=== PATIENT | male | born 1975 | race Hispanic/Latino ===

== ENCOUNTER → 2018-04-14 | Day surgery (SDC) | payer OTHER ==
[~2018-04-14] MED LIST: ATENOLOL50 MG PO; FENTANYL CITRATE/PF 100MCG/2 ML INJ ONE; GLUCAGON FOR INJ 1 MG VIAL ONE; HYOSCYAMINE SULFATE 0.5 MG/ML INJ ONE; MIDAZOLAM HCL 2 MG/2 ML VIAL ONE; PROPOFOL IV EMULSION 10 MG/ML 50 ML VIAL ONE; ZESTRIL40 MG PO
[2018-04-14 11:25] VITALS: BP 143/93
--- NOTE | 2018-04-14 13:21 | Operative Report ---
DATE OF PROCEDURE: April 14, 2018 REFERRING PHYSICIAN: Dr. Paul Hunt PROCEDURES PERFORMED 1. Esophagogastroduodenoscopy with biopsies. 2. Colonoscopy with polypectomy and biopsies. INDICATIONS FOR EGD: Acid reflux. INDICATIONS FOR COLONOSCOPY: History of rectal bleeding. MEDICATION: Patient was done under MAC. Please see anesthesiologist's note. PROCEDURE: With the patient in the left lateral decubitus position, the flexible fiberoptic Olympus gastroscope was introduced into the esophagus under direct visualization without any difficulty. There was some patchy erythema noted in the distal esophagus. The scope was then advanced with ease into the stomach. Mucosa overlying the antrum and the body revealed some patchy erythema and low-grade to moderate edema. Biopsies were obtained and sent to stain for H. pylori. Several hyperplastic-appearing polyps were noted in the body of the stomach, and some were partially excised with cold biopsy forceps. Pylorus appeared to be of normal contour and shape. It was intubated with ease, and the scope was advanced all the way to the 2nd portion of the duodenum. The scope was then withdrawn slowly. Mucosa overlying the proximal 2nd portion and the duodenal bulb appeared to be within normal limits. Biopsies were obtained to rule out sprue. The scope was then withdrawn back into the stomach and retroflexed. Mucosa overlying the fundus and the cardia appeared to be within normal limits. The scope was then straightened out. The scope was then slowly withdrawn. The mucosa at the GE junction appeared somewhat raised, and biopsies were obtained. The patient tolerated the procedure well. IMPRESSION 1. Distal esophagitis, mild. 2. Gastroesophageal junction mucosa somewhat raised, biopsies obtained. 3. Gastritis, biopsied. Biopsies sent to stain for H. pylori. 4. Gastric polyps, some partially excised with cold biopsy forceps. 5. Rule out sprue. PLAN: Follow up histology. Initiate Protonix 40 mg 1 p.o. q.a.m. a.c. The patient was then turned around. After adequate lubrication of the anal canal, a flexible fiberoptic Olympus colonoscope was inserted into the rectum with ease and advanced all the way to the cecum. One polyp was hot biopsied from the cecum. The scope was then withdrawn slowly, and 1 polyp was snared from the ascending colon. The transverse appeared to be within normal limits. A semi-circumferential mass was noted in the distal descending, and biopsies were obtained. An approximately 1-cm pedunculated polyp was noted in the proximal sigmoid colon, and that was removed per snare electrocautery and it was hemoclipped. The rest of the sigmoid and rectum appeared to be within normal limits. The scope was then retroflexed into the distal rectum, and moderate-size internal hemorrhoids were noted, none of which was actively bleeding. The scope was then straightened out. It was subsequently withdrawn. Patient tolerated the procedure well. IMPRESSIONS 1. Cecal polyp, hot biopsied. 2. Ascending colon polyp, snared. 3. Descending colon mass, semi-circumferential, biopsies obtained. The mass was also tattooed. 4. Sigmoid colon polyp, snared. Polypectomy site was hemoclipped. 5. Internal hemorrhoids, none actively bleeding. PLAN: Follow up histology. Patient will need a CT scan of the abdomen and pelvis. Also, a general surgical opinion is in order. Job#: [id number] cc:DO CHRISTAL JOSHI MD
== END | disposition home or self-care (01) ==
LOC: OR 06:49
PROVIDERS: ATTEND Internal Medicine Gastroenterology
DX: C18.6 Malignant neoplasm of descending colon (principal); D12.5 Benign neoplasm of sigmoid colon; D12.2 Benign neoplasm of ascending colon; K31.7 Polyp of stomach and duodenum; K29.70 Gastritis, unspecified, without bleeding; K20.9 Esophagitis, unspecified; K21.9 Gastro-esophageal reflux disease without esophagitis; K64.8 Other hemorrhoids; I10 Essential (primary) hypertension; Z01.810 Encounter for preprocedural cardiovascular examination
CPT/HCPCS: 43239; 45380; 45381; 45384; 45385; 93005; J1610; J1980; J2250; J2704; 45378

== ENCOUNTER → 2018-04-15 | Outpatient (CLI) | payer OTHER ==
[~2018-04-15] MED LIST changes: -FENTANYL CITRATE/PF 100MCG/2 ML INJ ONE; -GLUCAGON FOR INJ 1 MG VIAL ONE; -HYOSCYAMINE SULFATE 0.5 MG/ML INJ ONE; +IOPAMIDOL 370 MG/ML 200 ML INFUS..BTL INJ ONE; -MIDAZOLAM HCL 2 MG/2 ML VIAL ONE; -PROPOFOL IV EMULSION 10 MG/ML 50 ML VIAL ONE; +SODIUM CHLORIDE 0.9% 50ML 50 ML ONE
[2018-04-15 13:07] LABS: BLOOD UREA NITROGEN 11 mg/dL (7-26); BUN/CREATININE RATIO 9 (6-25); CREATININE, SERUM 1.26 mg/dL (0.72-1.25); EST GLOMERULAR FILTRATION RATE > 60 ML/MIN (60-)
--- NOTE | 2018-04-15 13:46 | Diagnostic Imaging Report ---
EXAMINATION: CT of the abdomen and pelvis with contrast. TECHNIQUE: Spiral CT images of the abdomen and pelvis were performed from the lung bases to the lesser trochanters after the intravenous administration of 100 cc Isovue-370 and the oral administration of water. Coronal and sagittal reformatted images were obtained. COMPARISON: None. CLINICAL HISTORY:: Colon mass, colon polyp DISCUSSION: ABDOMEN/PELVIS: LOWER THORAX:Juxtapleural opacities in the dependent lower lobes likely subsegmental atelectasis. HEPATOBILIARY: No focal hepatic lesions. No intra-or extrahepatic biliary ductal dilation. The gallbladder is normal. SPLEEN: No splenomegaly. PANCREAS: No focal masses or ductal dilatation. ADRENALS: No adrenal nodules. KIDNEYS/URETERS: No hydronephrosis, stones, or solid mass lesions. PELVIC ORGANS/BLADDER: Urinary bladder is incompletely distended but otherwise unremarkable. Coarse central prostatic calcifications. PERITONEUM/RETROPERITONEUM: No charles pneumoperitoneum or fluid. LYMPH NODES: No pelvic sidewall, retroperitoneal, or mesenteric lymphadenopathy. VESSELS: Abdominal aorta, major branch vessels, and iliac arterial systems are well-visualized and patent. Portal vein, splenic vein, and central superior mesenteric vein are patent. GI TRACT: The large bowel shows no evidence of distention or wall thickening. Metallic clips, presumably related to endoscopic polypectomy are identified at the proximal sigmoid colon. Additionally, there is a small focus of contained extraluminal air adjacent to the posterior margin of the proximal descending colon wall seen on series 2 image 36, likely attributable to endoscopic excision or biopsy. 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 No acute osseous abnormalities. No focal soft tissue abnormalities. IMPRESSION: Concentric wall thickening of the proximal descending colon with small focus of contained extraluminal air posteriorly, presumably a consequence of endoscopic polypectomy or biopsy. Correlation with endoscopic report is suggested. Additional endoscopic clips more distally at the junction of the descending and sigmoid colon. No mesenteric lymphadenopathy or CT evidence of metastatic disease. Findings were discussed by telephone with Ms. Schroeder, nurse for Dr. Bailey Levine, at 1:40 PM 04/15/2018. Signed by: Dr. Rito Manzanares M.D. on 04/15/2018 1:43 PM
== END ==
LOC: CT 12:15
PROVIDERS: ATTEND Internal Medicine Gastroenterology
DX: K63.9 Disease of intestine, unspecified (principal); K63.5 Polyp of colon; K64.8 Other hemorrhoids
CPT/HCPCS: 36415; 74177; 82565; 84520; Q9967

== ENCOUNTER 2018-05-05 07:36 | Inpatient (IN) | payer OTHER ==
--- NOTE | 2018-05-01 10:12 | Diagnostic Imaging Report ---
EXAMINATION: CHEST 2 VIEWS INDICATION: Pre-admit. COMPARISON: None FINDINGS: TUBES and LINES: None. LUNGS: Lungs are well inflated. Lungs are clear. There is no evidence of pneumonia or pulmonary edema. PLEURA: No pleural effusion or pneumothorax. HEART AND MEDIASTINUM: The cardiomediastinal silhouette is unremarkable. BONES AND SOFT TISSUES: No acute osseous lesion. Soft tissues are unremarkable. UPPER ABDOMEN: No free air under the diaphragm. IMPRESSION: No acute radiographic abnormality. Signed by: Dr. Benita Gibson MD on 05/01/2018 10:08 AM
[2018-05-02 10:25] LABS: BASOPHILS % 0.6 % (0.0-1.0); EOSINOPHILS # (AUTO) 0.2 (0.0-0.4); EOSINOPHILS % 3.3 % (0.0-6.0); HEMOGLOBIN 14.9 g/dL (14.0-18.0); LYMPHOCYTES # (AUTO) 1.9 (1.0-3.2); LYMPHOCYTES % 29.2 % (18.0-39.1); MEAN CORPUSCULAR HEMOGLOBIN 29.2 pg (28-32); MEAN CORPUSCULAR HGB CONC 33.1 g/dL (31-35); MEAN CORPUSCULAR VOLUME 88.2 fL (81-99); MONOCYTES # (AUTO) 0.4 (0.2-0.8); MONOCYTES % 5.7 % (4.4-11.3); NEUTROPHILS % 60.9 % (38.7-80.0); PLATELET COUNT 319 x10e3/uL (140-360); RED CELL DISTRIBUTION WIDTH 13.1 % (11.7-14.4)
[2018-05-02 10:40] LABS: BLOOD UREA NITROGEN 13 mg/dL (7-26); BUN/CREATININE RATIO 13 (6-25); CALCIUM 8.9 mg/dL (8.4-10.2); CARBON DIOXIDE 28 mmol/L (22-29); CHLORIDE 104 mmol/L (98-107); CREATININE, SERUM 1.03 mg/dL (0.72-1.25); EST GLOMERULAR FILTRATION RATE > 60 ML/MIN (60-); GLUCOSE 107 mg/dL (74-118); SODIUM 137 mmol/L (136-145)
[~2018-05-05] VITALS: Ht 177.8 cm; Wt 102.5 kg
[~2018-05-05 07:36] MED LIST changes: -IOPAMIDOL 370 MG/ML 200 ML INFUS..BTL INJ ONE; -SODIUM CHLORIDE 0.9% 50ML 50 ML ONE
--- OUTSIDE RECORDS SUMMARY | 2018-05-05 07:38 | XMS REPORT ---
Author [facility] Address Unknown Phone Unavailable Care Team Providers Care Freight Solicitor Name Role Phone Kelle JULIAN Unavailable Unavailable CINDY LEVINE Unavailable Unavailable Problems This patient has no known problems. Allergies, Adverse Reactions, Alerts This patient has no known allergies or adverse reactions. Medications This patient has no known medications. Results Test Description Test Time Test Comments Text Results Atomic Results Result Comments CHEST 2 VIEWS 2018-05-01 10:04:00 [place] [address] Patient Name: EDILSON URIAS MR #: [id number] : 1975 Age/Sex: 43/M Req #: [id number] Adm Physician: Ordered by: CHRISTAL JULIAN MD Report #: [id number] Location: OR Room/Bed: Procedure: [id number] DX/CHEST 2 VIEWS Exam Date: 05/01/18 Exam Time: 0925 REPORT STATUS: Signed EXAMINATION: CHEST 2 VIEWS INDICATION: Pre-admit. COMPARISON: None FINDINGS: TUBES and LINES: None. LUNGS: Lungs are well inflated. Lungs are clear. There is no evidence of pneumonia or pulmonary edema. PLEURA: No pleural effusion or pneumothorax. HEART AND MEDIASTINUM: The cardiomediastinal silhouette is unremarkable. BONES AND SOFT TISSUES: No acute osseous lesion. Soft tissues are unrem arkable. UPPER ABDOMEN: No free air under the diaphragm. IMPRESSION: No acute radiographic abnormality. Signed by: Dr. Zack Zurita MD on 05/01/2018 10:08 AM Dictated By: ZACK ZURITA MD 1008 Transcribed By: MILTON on 05/01/18 1008 COPY TO: CHRISTAL JULIAN MD CT ABDOMEN/PELVIS W 2018-04-15 13:24:00 [place] [address] Patient Name: EDILSON URIAS MR #: [id number] : 1975 Age/Sex: 43/M Req #: [id number] Adm Physician: Ordered by: CINDY LEVINE MD Report #: [id number] Location: CT Room/Bed: Procedure: [id number] CT/CT ABDOMEN/PELVIS W Exam Date: 04/15/18 Exam Time: 1230 REPORT STATUS: Signed EXAMINATION: CT of the abdomen and pelvis with contr ast. TECHNIQUE: Spiral CT images of the abdomen and pelvis were performed from the lung bases to the lesser trochanters after the intravenous administration of 100 cc Isovue-370 and the oral administration of water. Coronal and sagittal reformatted images were obtained. COMPARISON: None. CLINICAL HISTORY:: Colon mass, colon polyp DISCUSSION: ABDOMEN/PELVIS: LOWER THORAX:Juxtapleural opacities in the dependent lower lobes likely subsegmental atelectasis. HEPATOBILIARY: No focal hepatic lesions. No intra-or extrahepatic biliary ductal dilation. The gallbladder is normal. SPLEEN: No splenomegaly. PANCREAS: No focal masses or ductal dilatation. ADRENALS: No adrenal nodules. KIDNEYS/URETERS: No hydronephrosis, stones, or solid mass lesions. PELVIC ORGANS/BLADDER: Urinary bladder is incompletely distended but otherwise unremarkable. Coarse central prostatic calcifications. PERITONEUM/RETROPERITONEUM: No charles pneumoperitoneum or fluid. LYMPH NODES: No pelvic sidewall, retroperitoneal, or mesenteric lymphadenopathy. VESSELS: Abdominal aorta, major branch vessels, and iliac arterial systems are well-visualized and patent. Portal vein, splenic vein, and central superior mesenteric vein are patent. GI TRACT: The large bowel shows no evidence of distention or wall thickening. Metallic clips, presumably related to endoscopic polypectomy are identified at the proximal sigmoid colon. Additionally, there is a small focus of contained extraluminal air adjacent to the posterior margin of the proximal descending colon wall seen on series 2 image 36, likely attributable to endoscopic excision or biopsy. 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 No acute osseous abnormalities. No focal soft tissue abnormalities. IMPRESSION: Concentric wall thickening of the proximal descending colon with small focus of contained extraluminal air posteriorly, presumably a consequence of endoscopic polypectomy or biopsy. Correlation with endoscopic report is suggested. Additional endoscopic clips more distally at the junction of the descending and sigmoid colon. No mesenteric lymphadenopathy or CT evidence of metastatic disease. Findings were discussed by telephone with Ms. Schroeder, nurse for Edmundo Levine, at 1:40 PM 04/15/2018. Signed by: Dr. Vic Magana M.D. on 04/15/2018 1:43 PM Dictated By: VIC MAGANA MD 1343 Transcribed By: MILTON on 04/15/18 1343 COPY TO: CINDY LEVINE MD
[2018-05-05] MEDS ORDERED: MINERAL OIL STERILE 10ML VIAL ONE (09:33)
[2018-05-05] MEDS ORDERED: HYDROMORPHONE 2MG/ML 2 MG/ML ML ONE ×2 (13:25→14:48)
[2018-05-05] MEDS: DEXTROSE 5%/LACTATED RINGERS 1,000 ML IV SCH (14:10)
[2018-05-05] MEDS ORDERED: ACETAMINOPHEN 1000 MG/100 ML IV PRN (14:15)
[2018-05-05] MEDS ORDERED: NALOXONE HCL INJ 0.4 MG/ML AMP IV PRN (14:15)
[2018-05-05] MEDS ORDERED: PROMETHAZINE HCL (IM) 25 MG/ML VIAL IV PRN (14:15)
[2018-05-05] MEDS ORDERED: KETOROLAC TROMETHAMINE 30 MG/ML VIAL IV PRN (14:15)
[2018-05-05] MEDS ORDERED: HYDROMORPHONE 0.2MG/ML-SOD CHL 30ML PCA SYRINGE IV PRN (14:15)
[2018-05-05] MEDS ORDERED: FENTANYL CITRATE/PF 100MCG/2 ML INJ ONE ×2 (14:38→18:21)
--- NOTE | 2018-05-05 15:16 | NUR ---
Patient admitted to unit from PACU. Patient is AAox3. Patient is post op exp lap with a left hemicolectomy. Dressing to abdomen clean and dry with abd binder in place. Hester catheter in place. Clear urine draining. NG tube in the left nare to suction. Lung stevenson diminished to auscultation. Bowel sounds absent at this time. Patient had his LBM the night before surgery d/t bowel prep. Right AC IV in place. IV fluids and MVA STILL OPERATOR pump infusing. No c/o pain at this time. Family at bedside
[2018-05-05 16:07] VITALS: BP 145/77
[2018-05-05] MEDS ORDERED: PROMETHAZINE 12.5MG/ NACL 0.9% 50 ML IV PRN (16:15)
[2018-05-05 16:23] VITALS: BP 145/77
[2018-05-05] MEDS: CEFOXITIN 1GM/ D5W 50ML 50 ML IV SCH (17:03)
[2018-05-05] MEDS: SODIUM CHLORIDE 0.9% 250ML IRRIG IR SCH ×2 (17:03→22:15)
[2018-05-05] MEDS ORDERED: MIDAZOLAM HCL 2 MG/2 ML VIAL ONE (18:21)
[2018-05-05] MEDS ORDERED: ONDANSETRON HCL INJ 2MG/ML 2ML 2 MG/ML VIAL ONE (18:42)
[2018-05-05] MEDS ORDERED: DEXAMETHASONE SOD PHOS INJ 4 MG/ML VIAL ONE (18:42)
[2018-05-05] MEDS ORDERED: LIDOCAINE HCL 2% LOCAL INJ 5 ML SDV VIAL INJ ONE (18:42)
[2018-05-05] MEDS ORDERED: EPHEDRINE SULFATE INJ 50 MG/10 ML SYR ONE (18:42)
[2018-05-05] MEDS ORDERED: PHENYLEPHRINE HCL 1% 10 MG/ML VIAL ONE (18:42)
[2018-05-05] MEDS ORDERED: SEVOFLURANE INHAL SOLN 250 ML PEN BTL ONE (18:42)
[2018-05-05] MEDS ORDERED: ROCURONIUM BROMIDE 10 MG/ML 5ML VIAL ONE (18:42)
[2018-05-05] MEDS ORDERED: ACETAMINOPHEN 1000 MG/100 ML IV ONE (18:42)
[2018-05-05] MEDS ORDERED: CEFOXITIN SOD 1 GM VIAL ONE (18:42)
[2018-05-05] MEDS ORDERED: PROPOFOL IV EMULSION 10 MG/ML 20 ML VIAL ONE (18:42)
[2018-05-05 19:41] VITALS: BP 141/65
[2018-05-05 21:00] VITALS: BP 141/65
--- NOTE | 2018-05-05 22:01 | Operative Report ---
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 OPERATION PERFORMED: Exploratory laparotomy, left colectomy with mobilization of the splenic flexure. ASSISTANTS: Dr. Phan Holguin and DAVE Franco. ANESTHESIA: General. COMPLICATIONS: None. ESTIMATED BLOOD LOSS: 100 mL. DESCRIPTION OF PROCEDURE: With the patient lying in the bed in the supine position under good general endotracheal anesthesia. The abdomen was prepped with Betadine solution and draped in the usual manner. A midline incision was made and it was carried down through the subcutaneous tissue down to the fascia and the fascia was opened. The peritoneum was opened and the abdomen was entered. Upon entering the abdominal cavity, exploration revealed a palpable small mass in the splenic flexure. There was a tattoo in this area as it had been expected. The rest of the abdominal exploration was otherwise negative. The liver showed no sign of any metastatic spread of disease. The left colon was then mobilized off the lateral gutter and the splenic flexure was then slowly and carefully taken down using the EnSeal device and it was from the spleen. The lesser sac was then entered and the lesser omentum was detached from the transverse colon. The transverse colon was freed up all the way across from the lesser omentum. After this was done, the splenic flexure was brought down. The transverse colon was then divided at the level of the midtransverse colon and the descending colon was mobilized and the colon was divided at the level of the sigmoid colon. The mesentery was then slowly and carefully taken down using the EnSeal device and the specimen was sent for pathological examination. The whole area was thoroughly irrigated. Perfect hemostasis was ascertained. The transverse colon was then brought down to the pelvis. An anastomosis was performed with another application of KACIE-75 stapler with the remaining opening closed with a TA-60 stapler. Gloves and instruments were changed. The anastomosis was then reinforced with interrupted sutures of 3-0 silk. The bowel was returned to the abdominal cavity in an retail banker fashion. The abdomen was copiously irrigated, perfect hemostasis was ascertained, and all the excess fluid was aspirated. The abdomen was then closed in layers. The peritoneum was closed with a running suture of #1 Vicryl. The midline fascia was closed with a running suture of #1 Vicryl. The subcutaneous tissue was approximated with 2-0 chromic and the skin was closed with clips. A dressing was applied. The sponge, lap, and needle counts were correct. The patient tolerated the procedure well and returned to the recovery room in stable condition. MD TANVIR Gongora/CAM /[id number]
[2018-05-05 23:56] VITALS: BP 163/77
[2018-05-06] VITALS (7 sets, daily range): BP systolic 131–141; BP diastolic 73–93
[2018-05-06] MEDS: CEFOXITIN 1GM/ D5W 50ML 50 ML IV SCH (01:12)
[2018-05-06] MEDS: DEXTROSE 5%/LACTATED RINGERS 1,000 ML IV SCH ×4 (01:12→21:59)
[2018-05-06] MEDS: SODIUM CHLORIDE 0.9% 250ML IRRIG IR SCH ×3 (02:15→11:00)
[2018-05-06 06:45] LABS: BASOPHILS % 0.2 % (0.0-1.0); EOSINOPHILS % 0.1 % (0.0-6.0); HEMATOCRIT 43.9 % (38.2-49.6); HEMOGLOBIN 14.5 g/dL (14.0-18.0); LYMPHOCYTES # (AUTO) 1.6 (1.0-3.2); LYMPHOCYTES % 12.5 % (18.0-39.1); MEAN CORPUSCULAR HEMOGLOBIN 29.2 pg (28-32); MEAN CORPUSCULAR VOLUME 88.5 fL (81-99); MONOCYTES # (AUTO) 1.2 (0.2-0.8); NEUTROPHILS # (AUTO) 10.2 (2.1-6.9); NEUTROPHILS % 77.8 % (38.7-80.0); PLATELET COUNT 320 x10e3/uL (140-360); RED BLOOD COUNT 4.96 x10e6/uL (4.3-5.7); RED CELL DISTRIBUTION WIDTH 13.1 % (11.7-14.4)
[2018-05-06 06:58] LABS: ANION GAP 13.6 mmol/L (8-16); BLOOD UREA NITROGEN 7 mg/dL (7-26); BUN/CREATININE RATIO 8 (6-25); CALCIUM 9.1 mg/dL (8.4-10.2); CARBON DIOXIDE 25 mmol/L (22-29); CHLORIDE 98 mmol/L (98-107); CREATININE, SERUM 0.89 mg/dL (0.72-1.25); EST GLOMERULAR FILTRATION RATE > 60 ML/MIN (60-); GLUCOSE 143 mg/dL (74-118); POTASSIUM 3.6 mmol/L (3.5-5.1); SODIUM 133 mmol/L (136-145)
--- NOTE | 2018-05-06 07:18 | NUR ---
Rcvd patient in report this am. Patient is asleep in bed at this time. No s/s of distress noted
[2018-05-06] MEDS: ATENOLOL 50 MG TAB PO SCH (08:54)
--- NOTE | 2018-05-06 11:03 | NUR ---
Patient is post op day 1 exploratory lap with left hemicolectomy. Dressing to abdomen clean and dry with abdominal binder in place. NG tube in place to left nare and to low suction. No c/o nausea or vomiting. Patient assisted up to chair this am. Patient tolerated well. Patient is NPO with IV fluids infusing and GAS ENGINE OPERATOR pump. Hester catheter to gravity. Clear urine noted.
--- NOTE | 2018-05-06 11:25 | NUR ---
removed gruber at this time. 300ml of urine removed. Patient tolerated well. Patient instructed that in 6 hours he is to inform nurse if he has voided.
--- NOTE | 2018-05-06 13:37 | NUR ---
Removed NG Tube. Patient tolerated well. Will remain NPO.
[2018-05-06] MEDS: PANTOPRAZOLE 40 MG 10ML VIAL IV SCH ×2 (13:55→14:15)
--- NOTE | 2018-05-06 16:07 | NUR ---
Nutrition Screen Note RD Recommendation for Physician: -Rec advancing to GI soft diet as medically appropriate Plan of Care: RD following, monitoring for tolerance and adequacy Nutrition reason for involvement: Nutrition Risk Trigger MST Primary Diagnose(s): colon cancer PMH: no H&P in chart Ht: 70in Wt: 254lb BMI: 36.4kg/m2 IBW: 166lb RD Assessment: (05/06) Chart reviewed. Labs and meds reviewed. 43yo M, who was s/p ex-lap with hemicolectomy on 05/05. NGT has been discontinued. 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 Pt denied chewing/swallowing problems and nausea/vomiting. Pt reported passing some gas after surgery. Will continue to monitor and follow. Current Diet: NPO Malnutrition Evaluation (05/06/2018) The patient does not meet criteria for a specified degree of malnutrition at this time. Will re-evaluate at follow-up as appropriate. Diet Education Needs Assessment: Diet education not indicated. Nutrition Care Level: low Signed: Fatmata Fitch, MS, RD, LD
--- NOTE | 2018-05-06 16:10 | NUR ---
Patient voided at this time. 800ml of clear urine noted. No s/s of distress noted
--- NOTE | 2018-05-06 19:10 | NUR ---
RECEIVED PATIENT AAOX3, RESTING IN BED, FAMILY MEMBER TO BEDSIDE. NO BREATHING EVEN AND UNLABORED. NO NEEDS VOICED AT THIS TIME. BED LOCKED AND IN LOWEST POSITION, CALL LIGHT WITHIN EASY REACH. SUPERVISOR BODY ASSEMBLY BUTTON WITHIN EASY REACH. WILL CONTINUE TO MONITOR THE PATIENT.
[2018-05-06] MEDS: BISACODYL 10 MG SUPP PR SCH (21:55)
[2018-05-07] VITALS (8 sets, daily range): BP systolic 131–162; BP diastolic 78–83
[2018-05-07 06:25] LABS: BASOPHILS # (AUTO) 0.1 (0.0-0.1); BASOPHILS % 0.3 % (0.0-1.0); EOSINOPHILS # (AUTO) 0.3 (0.0-0.4); EOSINOPHILS % 1.8 % (0.0-6.0); HEMATOCRIT 41.9 % (38.2-49.6); LYMPHOCYTES # (AUTO) 1.6 (1.0-3.2); LYMPHOCYTES % 10.7 % (18.0-39.1); MEAN CORPUSCULAR HEMOGLOBIN 29.4 pg (28-32); MEAN CORPUSCULAR HGB CONC 33.4 g/dL (31-35); MEAN CORPUSCULAR VOLUME 87.8 fL (81-99); MONOCYTES # (AUTO) 1.5 (0.2-0.8); MONOCYTES % 10.1 % (4.4-11.3); NEUTROPHILS # (AUTO) 11.3 (2.1-6.9); NEUTROPHILS % 76.6 % (38.7-80.0); PLATELET COUNT 274 x10e3/uL (140-360); RED BLOOD COUNT 4.77 x10e6/uL (4.3-5.7); RED CELL DISTRIBUTION WIDTH 13.3 % (11.7-14.4)
[2018-05-07 06:46] LABS: ANION GAP 8.8 mmol/L (8-16); BLOOD UREA NITROGEN 6 mg/dL (7-26); BUN/CREATININE RATIO 6 (6-25); CARBON DIOXIDE 28 mmol/L (22-29); CHLORIDE 102 mmol/L (98-107); CREATININE, SERUM 0.96 mg/dL (0.72-1.25); EST GLOMERULAR FILTRATION RATE > 60 ML/MIN (60-); GLUCOSE 127 mg/dL (74-118); POTASSIUM 3.8 mmol/L (3.5-5.1); SODIUM 135 mmol/L (136-145)
--- NOTE | 2018-05-07 07:00 | NUR ---
bedside round complete no distress noted, denies pain at this time, call light in reach will continue to monitor
[2018-05-07] MEDS: DEXTROSE 5%/LACTATED RINGERS 1,000 ML IV SCH ×2 (08:08→19:58)
[2018-05-07] MEDS: BISACODYL 10 MG SUPP PR SCH (09:07)
[2018-05-07] MEDS: ATENOLOL 50 MG TAB PO SCH (09:07)
--- NOTE | 2018-05-07 09:07 | NUR ---
assessment complete no distress noted, co pain to abdomen 4/10 inter com servicer at bedside, dsg to abdomen c/d/i, abd binder intact, r ac 20g no ss of infiltration noted, no other co voiced call light in reach will continue to monitor
[2018-05-07] MEDS ORDERED: HYDROMORPHONE 0.2MG/ML-SOD CHL 30ML PCA SYRINGE IV PRN (10:15)
[2018-05-07] MEDS: PANTOPRAZOLE 40 MG 10ML VIAL IV SCH (14:35)
--- NOTE | 2018-05-07 19:05 | NUR ---
BED SIDE SHIFT REPORT PERFORMED WITH OFF GOING NURSE Fitz MARQUEZ RN. RECEIVED PT LAYING SEMI FOWLERS IN BED, AAOX3, RR EVEN AND NON-LABORED, ON RA. NO S/SX OF DISTRESS NOTED. LEFT PT LAYING SEMI FOWLERS IN BED, BED IN LOW LOCKED POSITION, SIDE RAILS UPX2, CALL LIGHT AND PHONE WITHIN REACH. SENIOR ELECTRICAL DESIGNER BUTTON WITHIN REACH. FAMILY AT BEDSIDE.
[2018-05-07] MEDS ORDERED: ONDANSETRON HCL INJ 2MG/ML 2ML 2 MG/ML VIAL IV PRN (23:45)
[2018-05-08] VITALS: BP 178/97
[2018-05-08 04:00] VITALS: BP 154/87
--- NOTE | 2018-05-08 04:59 | NUR ---
SPOKE WITH MD Tino JULIAN CONCERNING PT ELEVATED BP. OK TO GIVE 0900 DOSE OF ATENOLOL NOW.
[2018-05-08] MEDS: ATENOLOL 50 MG TAB PO SCH (05:04)
[2018-05-08 06:13] LABS: BASOPHILS % 0.2 % (0.0-1.0); EOSINOPHILS % 0.1 % (0.0-6.0); HEMATOCRIT 42.7 % (38.2-49.6); HEMOGLOBIN 14.1 g/dL (14.0-18.0); LYMPHOCYTES # (AUTO) 0.9 (1.0-3.2); MEAN CORPUSCULAR VOLUME 87.7 fL (81-99); MONOCYTES # (AUTO) 1.2 (0.2-0.8); MONOCYTES % 6.6 % (4.4-11.3); NEUTROPHILS # (AUTO) 15.8 (2.1-6.9); NEUTROPHILS % 87.5 % (38.7-80.0); PLATELET COUNT 313 x10e3/uL (140-360); RED BLOOD COUNT 4.87 x10e6/uL (4.3-5.7); RED CELL DISTRIBUTION WIDTH 13.1 % (11.7-14.4)
[2018-05-08 06:24] LABS: BLOOD UREA NITROGEN 8 mg/dL (7-26); BUN/CREATININE RATIO 9 (6-25); CALCIUM 9.4 mg/dL (8.4-10.2); CARBON DIOXIDE 27 mmol/L (22-29); CHLORIDE 96 mmol/L (98-107); CREATININE, SERUM 0.93 mg/dL (0.72-1.25); EST GLOMERULAR FILTRATION RATE > 60 ML/MIN (60-); GLUCOSE 149 mg/dL (74-118); SODIUM 130 mmol/L (136-145)
[2018-05-08] MEDS: DEXTROSE 5%/LACTATED RINGERS 1,000 ML IV SCH ×2 (06:24→22:10)
--- NOTE | 2018-05-08 07:00 | NUR ---
BEDSIDE ROUNDS COMPLETE NO DISTRESS NOTED, UPDATED ON POC VOICED UNDERSTANDING, DENIES PAIN AT THIS TIME, CALL LIGHT IN REACH WILL CONTINUE TO MONITOR
[2018-05-08 09:30] VITALS: BP 131/79
--- NOTE | 2018-05-08 09:30 | NUR ---
ASSESSMENT COMPLETE NO DISTRESS NOTED, UPDATED ON POC VOICED UNDERSTANDING, DSG TO ABDOMEN C/D/I, IVF INFUSING TO L FA 20G NO SS OF INFILTRATION NOTED, NO OTHER CO VOICED CALL LIGHT IN REACH WILL CONTINUE TO MONITOR
[2018-05-08] MEDS ORDERED: HYDROCODONE/APAP 7.5MG-325MG 1 EA TAB PO PRN (12:45)
[2018-05-08] MEDS ORDERED: HYDROMORPHONE 1MG/1ML INJ IV PRN (12:45)
[2018-05-08] MEDS ORDERED: HYDROMORPHONE 2MG/ML 2 MG/ML ML IV PRN (12:45)
--- NOTE | 2018-05-08 13:56 | NUR ---
CASE MANAGEMENT INITIAL ASSESSMENT Auto Specialty Services Manager to bedside to discuss plan of care with patient/family. CM/SW role and care transitions discussed. Anticipated discharge plan discussed along with duration of care. CM/SW discussed patients right to make decisions in care. CM work hours given. Patient lives: PATIENT LIVES IN [address] [facility] WITH AND DAUGHTER Admit/Transfer: ED Hospital/ER visits since last admit: NO POA/Emergency contact: : FRANKLIN DE LEON- [phone] Current/Previous Home Health: NONE PCP/Follow-up Care: DR. SALVADOR AVILA Current/Previous DME: NONE NOT A READMIT Medications (referring to index hospitalization or the first time you were in the hospital) a. Were changes made in your medications when you were in the hospital on [date of index hospitalization]? Yes No Not sure Explain: Note: If no or not sure, please skip to question d b. Did you understand the changes? Yes No Explain: c. Were you able to obtain your new medications right away? Yes Non/a SNF only Explain: d. Were you able to take your medications like the doctor wanted you to? Yes No Explain: e. Did the hospital give you an accurate, easy to understand list of medications when you left? Yes No n/a SNF only Explain: Scale of 1-10 how comfortable does patient feel with disease management in outpatient setting: Other Services: NONE Employment Status: EMPLOYED Areas of Concerns: NONE Referral Needs: NONE AT THIS TIME Education Needs: CANCER SUPPORT IMM/EASLEY given and signed (if applicable): N/A Goal for discharge: DISCHARGE HOME WITH NO NEEDS CM left business card at the bedside with contact information. Name and number was also written on the patients whiteboard. Patient verbalized understanding of discussion. CM will follow-up with ongoing discharge and transition of care needs.
[2018-05-08] MEDS: PANTOPRAZOLE 40 MG 10ML VIAL IV SCH (14:40)
[2018-05-08 16:34] VITALS: BP 139/82
[2018-05-08] MEDS: PIPER-TAZ 3.375 GM 50 ML IV SCH (18:00)
--- NOTE | 2018-05-08 19:23 | NUR ---
BED SIDE SHIFT REPORT PERFORMED WITH OFF GOING NURSE Fitz MARQUEZ RN. RECEIVED PT LAYING SEMI FOWLERS IN BED, AAOX3, RR EVEN AND NON-LABORED, ON RA. NO S/SX OF DISTRESS NOTED. LEFT PT LAYING SEMI FOWLERS IN BED, BED IN LOW LOCKED POSITION, SIDE RAILS UPX2, CALL LIGHT AND PHONE WITHIN REACH. FAMILY AT BEDSIDE.
[2018-05-08 20:00] VITALS: BP 143/84
[2018-05-08] MEDS: BISACODYL 10 MG SUPP PR SCH (21:48)
[2018-05-08 21:57] VITALS: BP 143/84
[2018-05-09] VITALS (8 sets, daily range): BP systolic 125–155; BP diastolic 77–94
[2018-05-09] MEDS: PIPER-TAZ 3.375 GM 50 ML IV SCH ×4 (00:02→17:31)
[2018-05-09] MEDS: DEXTROSE 5%/LACTATED RINGERS 1,000 ML IV SCH ×2 (04:48→18:23)
--- NOTE | 2018-05-09 07:14 | NUR ---
Rcvd patient in report this am. Patient is asleep in bed at this time. No s/s of distress noted. Family at bedside
[2018-05-09] MEDS: BISACODYL 10 MG SUPP PR SCH (08:00)
[2018-05-09 08:11] LABS: BASOPHILS % 0.3 % (0.0-1.0); EOSINOPHILS # (AUTO) 0.2 (0.0-0.4); EOSINOPHILS % 1.5 % (0.0-6.0); HEMATOCRIT 40.2 % (38.2-49.6); HEMOGLOBIN 13.2 g/dL (14.0-18.0); LYMPHOCYTES # (AUTO) 1.3 (1.0-3.2); LYMPHOCYTES % 10.2 % (18.0-39.1); MEAN CORPUSCULAR HEMOGLOBIN 28.9 pg (28-32); MEAN CORPUSCULAR HGB CONC 32.8 g/dL (31-35); MEAN CORPUSCULAR VOLUME 88.2 fL (81-99); MONOCYTES # (AUTO) 1.3 (0.2-0.8); MONOCYTES % 9.9 % (4.4-11.3); NEUTROPHILS # (AUTO) 10.1 (2.1-6.9); NEUTROPHILS % 77.6 % (38.7-80.0); PLATELET COUNT 365 x10e3/uL (140-360); RED BLOOD COUNT 4.56 x10e6/uL (4.3-5.7); RED CELL DISTRIBUTION WIDTH 13.2 % (11.7-14.4)
[2018-05-09] MEDS: ATENOLOL 50 MG TAB PO SCH (09:12)
[2018-05-09] MEDS ORDERED: FEXOFENADINE H180 MG PO (13:38)
[2018-05-09] MEDS: PANTOPRAZOLE 40 MG 10ML VIAL IV SCH (14:26)
[2018-05-10 04:00] VITALS: BP 135/80
[2018-05-10] MEDS: PIPER-TAZ 3.375 GM 50 ML IV SCH ×3 (05:36→11:39)
--- NOTE | 2018-05-10 07:41 | NUR ---
Rcvd patient in report this am. Patient is asleep in bed. No s/s of distress noted.
--- NOTE | 2018-05-10 07:43 | NUR ---
Rcvd patient in report this am. Patient is asleep in bed at this time. No s/s of distress noted
[2018-05-10 08:30] VITALS: BP 144/77
[2018-05-10] MEDS: ATENOLOL 50 MG TAB PO SCH (08:41)
[2018-05-10] MEDS ORDERED: LORATADINE 10 MG TAB PO SCH (09:00)
[2018-05-10] MEDS ORDERED: FEXOFENADINE 180 MG PO SCH (09:00)
[2018-05-10 10:39] VITALS: BP 144/77
[2018-05-10] MEDS: PANTOPRAZOLE 40 MG 10ML VIAL IV SCH (11:39)
[2018-05-10 12:30] VITALS: BP 127/71
[2018-05-10] MEDS ORDERED: NORCO 5-325 TA1 EACH PO (13:34)
[2018-05-10] MEDS ORDERED: LEVAQUIN500 MG PO (13:34)
--- NOTE | 2018-05-10 13:35 | NUR ---
Removed IV from left hand. Pressure dressing applied
--- NOTE | 2018-05-10 13:58 | NUR ---
Patient discharged from facility to home. Patient assisted out via staff. Reviewed discharge paperwork, follow up appts reviewed, and RX's given. patient given strict instructions. Verbalized understanding.
== END 2018-05-10 13:58 | disposition home or self-care (01) | DRG 330 ==
LOC: OR 07:36 → PACU V 14:12 → MED/SURG 15:16
PROVIDERS: ADMIT Surgery; ATTEND Surgery
PROC: 0DTG0ZZ Resection of Left Large Intestine, Open Approach (ICD-10-PCS; principal; 2018-05-05 09:30)
DX: C18.5 Malignant neoplasm of splenic flexure (principal); E87.1 Hypo-osmolality and hyponatremia; I10 Essential (primary) hypertension
CPT/HCPCS: 36415; 71046; 80048; 85025; 88307; 88309; 88342; J0694; J1100; J2001; J2250; J2370; J2405; J2543; J2550

== ENCOUNTER → 2018-06-25 | Day surgery (SDC) | payer OTHER ==
[~2018-06-25] MED LIST changes: +BUPIVACAINE 0.25%/EPI 30ML SDV INJ ONE; +CEFAZOLIN SOD 1 GM VIAL ONE; +DEXAMETHASONE SOD PHOS INJ 4 MG/ML VIAL ONE; +FENTANYL CITRATE/PF 100MCG/2 ML INJ ONE; +FEXOFENADINE H180 MG PO; +HEPARIN SOD (PORCINE) 5,000 UNIT/ML VIAL ONE; +HYDROMORPHONE 2MG/ML 2 MG/ML ML ONE; +KETOROLAC TROMETHAMINE 30 MG/ML VIAL ONE; +LEVAQUIN500 MG PO; +LIDOCAINE HCL 2% LOCAL INJ 5 ML SDV VIAL INJ ONE; +MIDAZOLAM HCL 2 MG/2 ML VIAL ONE; +NORCO 5-325 TA1 EACH PO; +ONDANSETRON HCL INJ 2MG/ML 2ML 2 MG/ML VIAL ONE; +PROPOFOL IV EMULSION 10 MG/ML 20 ML VIAL ONE; +SEVOFLURANE INHAL SOLN 250 ML PEN BTL ONE; +SODIUM CHLORIDE 0.9% 500ML 500 ML ONE
[2018-06-25 12:15] VITALS: BP 122/83
--- NOTE | 2018-06-25 18:12 | Operative Report ---
DATE OF PROCEDURE: 06/25/2018 SURGEON: Leif Holguin MD PREOPERATIVE DIAGNOSIS: Colon cancer, needing IV access for chemotherapy. POSTOPERATIVE DIAGNOSIS: Colon cancer, needing IV access for chemotherapy. OPERATIONS PERFORMED: Placement of left subclavian venous access port under C-arm guidance. MACHINE GROUP LEADER: DAVE Downs. ANESTHESIA: General. COMPLICATIONS: None. ESTIMATED BLOOD LOSS: Minimal. DESCRIPTION OF PROCEDURE: With the patient lying in bed in the Trendelenburg position under good general anesthesia, the left chest and neck were prepped with Betadine solution and draped in the usual manner. A standard left subclavian venipuncture was performed without any difficulty and a guidewire was advanced into the central venous position. Using the C-arm, the tip of the guidewire was confirmed to be at the level of the superior vena cava and the left lung was fully expanded. The pocket was then created in the left anterior chest to accept the reservoir and the catheter was threaded to the subclavian position and the reservoir was anchored to the anterior chest wall with interrupted sutures of 2-0 silk. The reservoir and catheter were fully heparinized and the catheter was cut to the appropriate length. The catheter was then threaded through the peel-away sheath and the peel-away sheath was removed. There was good blood return and the reservoir and catheter were fully heparinized. Using the C-arm, the tip of the catheter was compared to be at the level of the superior vena cava and the left lung was fully expanded. The wounds were then closed in layers. The subcutaneous tissue was approximated with 3-0 and 4-0 Vicryl and the skin was closed with subcuticular 5-0 Vicryl. Benzoin, Steri-Strips, and dressings were applied. The sponge, lap, and needle count was correct. The patient tolerated the procedure well and returned to the recovery room in stable condition. MD TANVIR Gongora/MODL /[id number]
== END | disposition home or self-care (01) ==
LOC: OR 07:20
PROVIDERS: ATTEND Surgery
DX: C18.9 Malignant neoplasm of colon, unspecified (principal); I10 Essential (primary) hypertension; Z45.2 Encounter for adjustment and management of vascular access device
CPT/HCPCS: 36561; 77001; C1751; J0690; J1100; J1170; J1644; J1885; J2001; J2250; J2405; J2704; J7040

== ENCOUNTER → 2019-07-14 | Day surgery (SDC) | payer OTHER ==
[2019-07-10 13:53] LABS: BASOPHILS % 0.5 % (0.0-1.0); EOSINOPHILS # (AUTO) 0.1 (0.0-0.4); EOSINOPHILS % 1.1 % (0.0-6.0); HEMATOCRIT 46.9 % (38.2-49.6); HEMOGLOBIN 15.4 g/dL (14.0-18.0); LYMPHOCYTES # (AUTO) 1.7 (1.0-3.2); LYMPHOCYTES % 18.7 % (18.0-39.1); MEAN CORPUSCULAR HEMOGLOBIN 29.5 pg (28-32); MEAN CORPUSCULAR HGB CONC 32.8 g/dL (31-35); MEAN CORPUSCULAR VOLUME 89.8 fL (81-99); MONOCYTES # (AUTO) 0.6 (0.2-0.8); MONOCYTES % 6.5 % (4.4-11.3); NEUTROPHILS # (AUTO) 6.4 (2.1-6.9); NEUTROPHILS % 72.9 % (38.7-80.0); PLATELET COUNT 311 x10e3/uL (140-360); RED BLOOD COUNT 5.22 x10e6/uL (4.3-5.7); RED CELL DISTRIBUTION WIDTH 13.1 % (11.7-14.4)
[2019-07-10 14:10] LABS: ANION GAP 13.2 mmol/L (8-16); BLOOD UREA NITROGEN 10 mg/dL (7-26); BUN/CREATININE RATIO 11 (6-25); CALCIUM 9.5 mg/dL (8.4-10.2); CARBON DIOXIDE 25 mmol/L (22-29); CHLORIDE 104 mmol/L (98-107); CREATININE, SERUM 0.89 mg/dL (0.72-1.25); EST GLOMERULAR FILTRATION RATE > 60 ML/MIN (60-); GLUCOSE 117 mg/dL (74-118); POTASSIUM 4.2 mmol/L (3.5-5.1); SODIUM 138 mmol/L (136-145)
[~2019-07-14] MED LIST changes: +ALLEGRA ALLERGY60 MG PO; -BUPIVACAINE 0.25%/EPI 30ML SDV INJ ONE; -CEFAZOLIN SOD 1 GM VIAL ONE; -HEPARIN SOD (PORCINE) 5,000 UNIT/ML VIAL ONE; -HYDROMORPHONE 2MG/ML 2 MG/ML ML ONE; -KETOROLAC TROMETHAMINE 30 MG/ML VIAL ONE; +LIDOCAINE 1% W/EPINEPHRINE 20 ML VIAL ONE; -SODIUM CHLORIDE 0.9% 500ML 500 ML ONE
[2019-07-14 10:55] VITALS: BP 124/77
--- NOTE | 2019-07-14 15:14 | Operative Report ---
DATE OF PROCEDURE: 07/14/2019 SURGEON: Leif Holguin MD PREOPERATIVE DIAGNOSIS: Malfunctioning venous access port. POSTOPERATIVE DIAGNOSIS: Malfunctioning venous access port. OPERATION PERFORMED: Removal of left subclavian venous access port. ANESTHESIA: General. COMPLICATIONS: None. ESTIMATED BLOOD LOSS: Minimal. DESCRIPTION OF PROCEDURE: With the patient lying in bed in the supine position under good general anesthesia, the left chest was prepped with Betadine solution and draped in the usual manner. The area overlying the port in the left anterior chest was infiltrated with 1% xylocaine. An incision was made, carried down through the subcutaneous tissue and through the capsule of the Port-A-Cath. The Port-A-Cath was identified and all 4-0 silk sutures were removed. The port was then removed in its entirety without any difficulty and sent for identification. Hemostasis was ascertained. The capsule of the Port-A-Cath was then reapproximated with interrupted sutures of 3-0 Vicryl. The subcutaneous tissue was approximated with 3-0 and 4-0 Vicryl and the skin was closed with subcuticular 5-0 Vicryl. Benzoin, Steri-Strips, and dressings were applied. The sponge, lap, and needle count was correct. The patient tolerated the procedure well and returned to the recovery room in stable condition. MD JAVON GongoraR/MODL /[id number]
== END | disposition home or self-care (01) ==
LOC: OR 06:25
PROVIDERS: ATTEND Surgery
DX: T82.514A Breakdown (mechanical) of infusion catheter, initial encounter (principal); C18.9 Malignant neoplasm of colon, unspecified; I10 Essential (primary) hypertension; Y83.8 Other surgical procedures as the cause of abnormal reaction of the patient, or of later complication, without mention of misadventure at the time of the procedure; Z01.810 Encounter for preprocedural cardiovascular examination; Z01.812 Encounter for preprocedural laboratory examination; Z11.59 Encounter for screening for other viral diseases
CPT/HCPCS: 36415; 36590; 80048; 85025; 87635; 88300; 93005; J1100; J2001; J2250; J2405; J2704; J3010

== ENCOUNTER → 2019-12-03 | Day surgery (SDC) | payer OTHER ==
[~2019-12-03] MED LIST changes: -DEXAMETHASONE SOD PHOS INJ 4 MG/ML VIAL ONE; +HYOSCYAMINE 0.125 MG TAB ONE; -LIDOCAINE 1% W/EPINEPHRINE 20 ML VIAL ONE; -ONDANSETRON HCL INJ 2MG/ML 2ML 2 MG/ML VIAL ONE; -SEVOFLURANE INHAL SOLN 250 ML PEN BTL ONE
[2019-12-03 09:35] VITALS: BP 116/76
--- NOTE | 2019-12-03 10:50 | Operative Report ---
DATE OF PROCEDURE: 12/03/2019 SURGEON: Edd Levine MD PROCEDURE: Colonoscopy with polypectomy and biopsies. INDICATIONS FOR COLONOSCOPY: Personal history of colon cancer, colorectal cancer screening. MEDICATIONS: The patient was done under MAC, please see anesthesiologist's note. PROCEDURE IN DETAIL: With the patient in left lateral decubitus position, a flexible fiberoptic Olympus colonoscope was inserted into the rectum with ease and advanced all the way to the cecum. It was then withdrawn slowly. Mucosa overlying the cecum, ascending colon, transverse colon, and descending colon appeared grossly within normal limits. The anastomosis was noted at approximately 37 cm from the anal verge. There was no gross recurrence. Random biopsies obtained from the anastomotic site. Two minute polyps were noted just distal to the anastomosis and those were hot biopsied. The sigmoid colon as well as the rectum appeared to be within normal limits. The scope was then retroflexed into the distal rectum and moderate-sized internal hemorrhoids were noted none of which was actively bleeding. The scope was then straightened out, it was subsequently withdrawn. The patient tolerated the procedure well. IMPRESSION: 1. Anastomosis at approximately 37 cm from anal verge. No gross evidence of recurrence. Multiple biopsies obtained. 2. Polyps, minute, x2, just distal to the anastomosis, hot biopsied. 3. Internal hemorrhoids, none actively bleeding. PLAN: Follow up histology. Initiate high-fiber, low-fat diet. Initiate high-fiber supplement. The patient might benefit from a followup colonoscopy in one year. Edd Levine MD [facility] [place]/CAM /[id number] cc: Paul Hunt DO
== END | disposition home or self-care (01) ==
LOC: OR 06:02
PROVIDERS: ATTEND Internal Medicine Gastroenterology
DX: Z12.11 Encounter for screening for malignant neoplasm of colon (principal); K63.5 Polyp of colon; Z85.038 Personal history of other malignant neoplasm of large intestine; Z98.0 Intestinal bypass and anastomosis status; K64.8 Other hemorrhoids; K29.70 Gastritis, unspecified, without bleeding; K31.7 Polyp of stomach and duodenum; I10 Essential (primary) hypertension; I49.3 Ventricular premature depolarization; Z01.810 Encounter for preprocedural cardiovascular examination; Z01.812 Encounter for preprocedural laboratory examination; Z11.59 Encounter for screening for other viral diseases
CPT/HCPCS: 45380; 45384; 93005; J2001; J2250; J2704; J3010; U0002; 45378

== ENCOUNTER 2020-12-15 18:31 | Emergency (ER) | payer BC, OTHER ==
[~2020-12-15] VITALS: Ht 172.7 cm; Wt 120.2 kg
[~2020-12-15 18:31] MED LIST changes: -FENTANYL CITRATE/PF 100MCG/2 ML INJ ONE; -HYOSCYAMINE 0.125 MG TAB ONE; -LIDOCAINE HCL 2% LOCAL INJ 5 ML SDV VIAL INJ ONE; -MIDAZOLAM HCL 2 MG/2 ML VIAL ONE; -PROPOFOL IV EMULSION 10 MG/ML 20 ML VIAL ONE
== END 2020-12-15 21:48 | disposition home or self-care (01) ==
LOC: FSED 18:42
DX: S00.83XA Contusion of other part of head, initial encounter (principal); W20.8XXA Other cause of strike by thrown, projected or falling object, initial encounter; Y93.E6 Activity, residential relocation; Y92.008 Other place in unspecified non-institutional (private) residence as the place of occurrence of the external cause; I10 Essential (primary) hypertension; Z85.038 Personal history of other malignant neoplasm of large intestine; Z98.0 Intestinal bypass and anastomosis status
CPT/HCPCS: 70450; 70486; 99283

== ENCOUNTER → 2021-04-24 | Outpatient (CLI) | payer BC ==
[~2021-04-24] MED LIST changes: +IOPAMIDOL 370 MG/ML 200 ML INFUS..BTL INJ ONE; +SODIUM CHLORIDE 0.9% 50ML 0 ML ONE
[2021-04-24 09:02] LABS: CREATININE, SERUM 0.94 mg/dL (0.72-1.25)
== END ==
LOC: CT 08:25
PROVIDERS: ATTEND Internal Medicine Gastroenterology
DX: D13.1 Benign neoplasm of stomach (principal); Z85.038 Personal history of other malignant neoplasm of large intestine
CPT/HCPCS: 36415; 74176; 82565; 84520; Q9967

== ENCOUNTER → 2021-05-22 | Day surgery (SDC) | payer BC ==
[~2021-05-22] MED LIST changes: +FENTANYL CITRATE/PF 100MCG/2 ML INJ ONE; -IOPAMIDOL 370 MG/ML 200 ML INFUS..BTL INJ ONE; +LIDOCAINE HCL 2% LOCAL INJ 5 ML SDV VIAL INJ ONE; +MIDAZOLAM HCL 2 MG/2 ML VIAL ONE; +PROPOFOL IV EMULSION 10 MG/ML 20 ML VIAL ONE; -SODIUM CHLORIDE 0.9% 50ML 0 ML ONE
[2021-05-22 08:45] VITALS: BP 120/76
== END | disposition home or self-care (01) ==
LOC: OR 06:39
PROVIDERS: ATTEND Internal Medicine Gastroenterology
DX: Z12.11 Encounter for screening for malignant neoplasm of colon (principal); D12.4 Benign neoplasm of descending colon; Z85.038 Personal history of other malignant neoplasm of large intestine; K57.30 Diverticulosis of large intestine without perforation or abscess without bleeding; Z98.0 Intestinal bypass and anastomosis status; K64.8 Other hemorrhoids; I10 Essential (primary) hypertension; Z01.812 Encounter for preprocedural laboratory examination; Z20.822 Contact with and (suspected) exposure to COVID-19; Z79.899 Other long term (current) drug therapy
CPT/HCPCS: 45385; J2001; J2250; J2704; J3010; U0002; 45378